=== PATIENT | male | born 1970 | race Caucasian/White ===

== ENCOUNTER 2016-09-21 12:03 | Observation (INO) | payer BC ==
[~2016-09-21] VITALS: Ht 188 cm; Wt 141.8 kg
[~2016-09-21 12:03] MED LIST: PERCOCET 10/3251 TA1 PO; PRINIVIL20 MG PO; ROBAXIN-750750 MG PO
[2016-09-21 12:30] LABS: APPEARANCE CLEAR (CLEAR); BILIRUBIN NEGATIVE (NEGATIVE); COLOR YELLOW (YELLOW); GLUCOSE NEGATIVE (NEGATIVE); KETONE NEGATIVE (NEGATIVE); LEUKOCYTE ESTERASE NEGATIVE (NEGATIVE); NITRITE NEGATIVE (NEGATIVE); PROTEIN NEGATIVE (NEGATIVE); UROBILINOGEN NORMAL (NORMAL)
[2016-09-21 12:38] LABS: BASOPHILS 0.1 % (0-2); EOSINOPHILS 0.8 % (0-7); HEMATOCRIT 45.7 % (42.0-54.0); IMMATURE GRANULOCYTES 0.3 % (0-5); LYMPHOCYTES 10.9 % (15-50); MCH 30.6 pg (26.0-34.0); MCV 87.4 fL (80.0-100.0); MEAN PLATELET VOLUME 10.9 fL (7.4-10.4); MONOCYTES 6.7 % (2-11); NEUTROPHILS 81.2 % (40-80); PLATELET COUNT 242 10x3/uL (130-400); RBC 5.23 10x6/uL (4.20-6.10); RDW 12.6 % (11.5-14.5); WBC 15.4 10x3/uL (4.8-10.8)
[2016-09-21 13:03] LABS: ALBUMIN 3.9 g/dL (3.4-5.0); ALKALINE PHOSPHATASE 81 U/L (46-116); ALT (SGPT) 56 U/L (10-68); AMYLASE - SERUM 27 U/L (25-115); BILIRUBIN - TOTAL 0.98 mg/dL (0.2-1.3); CALC OSMOLALITY 273 mosm/kg (275-300); CALCIUM 9.1 mg/dL (8.5-10.1); CARBON DIOXIDE 25.8 mmol/L (21.0-32.0); CHLORIDE - SERUM 103 mmol/L (98-107); CREATININE - SERUM 0.9 mg/dL (0.6-1.3); GLUCOSE 111 mg/dL (74-106); LIPASE 82 U/L (73-393); PROTEIN - SERUM 7.9 g/dL (6.4-8.2); SODIUM 137 mmol/L (136-145); UREA NITROGEN 9 mg/dL (7-18); eGFR NON AFRICAN AMERICAN > 90 mL/min (90-120)
--- NOTE | 2016-09-21 16:52 | NUR ---
RECEIVED TO ROOM 2222 FROM ER VIA . ORIENTED TO ROOM AND CALL LIGHT SYSTEM. FAMILY IN ROOM. CALL LIGHT IN REACH. WILL CONTINUE WITH PLAN OF CARE.
--- NOTE | 2016-09-21 17:00 | NUR ---
NS INITIATED PER ORDER. FLAGYL 500 MG IVPB, AND MORPHINE 4 MG SIVP PER C/O PAIN OF 8. FAMILY IN ROOM. CALL LIGHT IN REACH.
--- NOTE | 2016-09-21 17:50 | NUR ---
LISINOPRIL PO. STATES PAIN HAS DECREASED TO A 4.
[2016-09-21 18:24] VITALS: BP 162/108; Ht 188 cm; Wt 141.8 kg
--- NOTE | 2016-09-21 18:32 | NUR ---
ASSESSMENT PER ADMIT PACK.PT DENIES NEEDS.DECLINES GOWN,STATES FAMILY TO BRING SHORTS.CALL LIGHT IN REACH.
[2016-09-21 19:00] VITALS: BP 161/92
[2016-09-22] VITALS: BP 147/82
[2016-09-22 04:39] LABS: BASOPHILS 0.1 % (0-2); EOSINOPHILS 1.2 % (0-7); HEMATOCRIT 43.5 % (42.0-54.0); IMMATURE GRANULOCYTES 0.2 % (0-5); MCH 30.4 pg (26.0-34.0); MCHC 34.5 g/dL (31.0-37.0); MCV 88.2 fL (80.0-100.0); MEAN PLATELET VOLUME 10.5 fL (7.4-10.4); MONOCYTES 10.7 % (2-11); NEUTROPHILS 77.8 % (40-80); PLATELET COUNT 221 10x3/uL (130-400); RBC 4.93 10x6/uL (4.20-6.10); RDW 12.9 % (11.5-14.5)
[2016-09-22 04:48] LABS: CALC OSMOLALITY 272 mosm/kg (275-300); CALCIUM 8.7 mg/dL (8.5-10.1); CARBON DIOXIDE 26.3 mmol/L (21.0-32.0); CHLORIDE - SERUM 101 mmol/L (98-107); CREATININE - SERUM 0.8 mg/dL (0.6-1.3); GLUCOSE 123 mg/dL (74-106); POTASSIUM - SERUM 4.2 mmol/L (3.5-5.1); SODIUM 137 mmol/L (136-145); UREA NITROGEN 7 mg/dL (7-18); eGFR NON AFRICAN AMERICAN > 90 mL/min (90-120)
[2016-09-22] MEDS ORDERED: FLAGYL500 MG PO (06:55)
[2016-09-22] MEDS ORDERED: CIPRO500 MG PO (06:55)
--- NOTE | 2016-09-22 06:58 | HP ---
PATIENT: ALICIA RIGGINS MEDICAL RECORD: [id number] ACCOUNT: [id number] LOCATION:D.MS Martin2222 : 70 ADMISSION DATE: 09/21/16 HISTORY AND PHYSICAL EXAMINATION DATE OF ADMISSION: 09/21/2016 CHIEF COMPLAINT: Abdominal pain. HISTORY OF PRESENT ILLNESS: The patient is a 46-year-old gentleman who states on Wednesday, he had developed pain in the left lower quadrant. He continues to have the pain. He presented to the Emergency Room where he was found to have diverticulitis, it was felt that the patient should be admitted. PAST MEDICAL HISTORY: Significant that he has had history of having hypertension, hyperlipidemia. He has had partial colon resection secondary to diverticulitis. He has had low back pain. FAMILY HISTORY: Father has Alzheimer's and hypertension. Mother of malignant tumor of the colon at age 60. SOCIAL HISTORY: The patient was born and raised in [facility]. He has education through the 12th grade. 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 Never a smoker, but does dip skoal on a daily basis. He denies any ethanol use. MEDICATIONS: Include lisinopril 20 mg 1 p.o. daily. ALLERGIES: He has no known drug allergies. REVIEW OF SYSTEMS: GENERAL: He denies any headaches, seizure, or syncope. Denies change in visual or auditory acuity. PULMONARY: He denies any shortness of breath, cough, congestion, history of TB, asthma or bronchitis. CARDIOVASCULAR: No chest pain, palpitation, PND, or orthopnea. GASTROINTESTINAL: No chronic nausea, vomiting, melena, or hematochezia. GENITOURINARY: No urgency, frequency, or dysuria. PHYSICAL EXAMINATION: VITAL SIGNS: His temperature is 99.4. His vital signs are stable. HEENT: Unremarkable. NECK: Supple. There is no adenopathy. HEART: Has a regular rate and rhythm without any murmurs, gallops, or rubs. LUNGS: Clear. ABDOMEN: Soft. He does have some left lower quadrant tenderness. The patient did have a CT scan of the abdomen. The CT scan of the abdomen revealed diverticulitis in the descending colon, also postoperative changes were noted. LABORATORY DATA: The patient had a white count elevated at 15.4. There was a left shift. Sodium 137, potassium 4, chloride is 103, CO2 is 25.8, BUN is 9, creatinine is 0.9 and glucose of 111. ASSESSMENT: 1. Leukocytosis. HISTORY AND PHYSICAL [id number] RIGGINSALICIA Gallo 2. Diverticulitis. PLAN: The patient is admitted, placed on Levaquin 500 mg IV q.24 hours and Flagyl 500 mg IV q.8 hours. Also, the patient was given morphine. Repeat CBC as well as BMP in the a.m. TRANSINT:[id number] Voice Confirmation ID: [id number] DOCUMENT ID: [id number] TEMO GRAY MD at 0658 CC: [id number] DICTATION DATE: 09/21/16 172 COLLEGE SPECIALIST: 09/21/16 [address] [place] [address]
--- NOTE | 2016-09-22 07:35 | NUR ---
PT AOX4 RESP EVEN AND NONLABORED PT DENIES NEEDS AT THIS TIME IV TO LEFT FOREARM PATENT AND INTACT SRX2 BED IN LOWEST POSITION CALL LIGHT WITHIN REACH WILL CONTINUE TO MONITOR
[2016-09-22 08:49] VITALS: BP 124/63
--- NOTE | 2016-09-22 08:52 | NUR ---
Patient Name: ALICIA RIGGINS Admission Status: ER Accout number: [id number] Admission Date: 09-21-2016 : 1970 Admission Diagnosis: Attending: DAX Current LOS: 1 Anticipated DC Date: 09-22-2016 Planned Disposition: Home Primary Insurance: [employer] [facility] Discharge Planning Comments: CM MET WITH PATIENT REGARDING D/C NEEDS AND PLANS. PATIENT IS DISCHARGING HOME TODAY AND (RENETTA) WILL DRIVE HIM. PATIENT STATED THERE ARE NO STEPS OR STAIRS AT HIS HOME. PATIENT IS INDEPENDENT WITH HIS CARE AND HAS NO DME AT HOME. PATIENTS PCP IS DR. GRAY AND PHARMACY IS [facility]. PATIENT STATED HE DID NOT NEED HOME HEALTH AND HAD NO OTHER NEEDS FOR DISCHARGE TODAY. CM WILL CONTINUE TO FOLLOW PATIENT WITH D/C NEEDS AND PLANS. PCP DR. GRAY [facility]- [phone] RENETTA (SPOUSE) [phone] Sugar Cane Planter: Tania Vieyra Is the patient Alert and Oriented? Yes 0 * How many steps to enter\exit or inside your home? 0 0 * PCP DR. GRAY 0 * Pharmacy [facility] 0 * Preadmission Environment Home with Family 0 * ADLs Independent 0 * Equipment None 0 * List name and contact numbers for known caregivers / representatives who currently or will assist patient after discharge: RENETTA () [phone] * Community resources currently utilized None 0 * Additional services required to return to the preadmission environment? Yes 0 * Can the patient safely return to the preadmission environment? Yes 0 * Has this patient been hospitalized within the prior 30 days at any hospital? No 0 Grand Total: 0
--- NOTE | 2016-09-22 12:00 | NUR ---
PT IV DICONTINUED WITH CATHETER INTACT AT THIS TIME PT GIVEN DISCHARGE INSTRUCTIONS AND VERBALIZES UNDERSTANDING PT LEFT VIA AMBULATION AT THIS TIME VIA PRIVATE VEHICLE
== END 2016-09-22 12:01 | disposition home or self-care (01) ==
LOC: D.ER 12:03 → D.MS 16:01 → OBSVTIME 16:01 → D.MS 16:01
PROVIDERS: Emergency Medicine; ADMIT Family Medicine
DX: K57.32 Diverticulitis of large intestine without perforation or abscess without bleeding (principal); I10 Essential (primary) hypertension; E78.5 Hyperlipidemia, unspecified; F17.220 Nicotine dependence, chewing tobacco, uncomplicated

== ENCOUNTER → 2017-02-10 12:06 | Outpatient (CLI) | payer BC ==
[2016-09-21 18:24] VITALS: BMI 40.1
[~2017-02-10 12:06] MED LIST changes: +CIPRO500 MG PO; +DILAUDID2 MG PO; +FLAGYL500 MG PO; +HYDROCODONE-APA1 TAB PO; +PRAVACHOL40 MG PO; +ZESTRIL20 MG PO
== END | disposition home or self-care (01) ==
LOC: D.MRI 12:00
DX: M25.561 Pain in right knee (principal)

== ENCOUNTER 2017-02-22 06:16 | Day surgery (SDC) | payer BC ==
[2017-02-19 12:09] LABS: HEMATOCRIT 45.8 % (42.0-54.0); HEMOGLOBIN 16.3 g/dL (13.5-17.5); MCH 30.6 pg (26.0-34.0); MCHC 35.6 g/dL (31.0-37.0); MCV 86.1 fL (80.0-100.0); MEAN PLATELET VOLUME 9.9 fL (7.4-10.4); RBC 5.32 10x6/uL (4.20-6.10); RDW 12.7 % (11.5-14.5); WBC 9.6 10x3/uL (4.8-10.8)
[~2017-02-22] VITALS: Ht 188 cm; Wt 131.7 kg
[~2017-02-22 06:16] MED LIST changes: -DILAUDID2 MG PO
[2017-02-22 13:45] VITALS: BP 144/86; Ht 188 cm; Wt 131.7 kg
[2017-02-22] MEDS ORDERED: DILAUDID2 MG PO (15:56)
--- NOTE | 2017-02-22 17:39 | NUR ---
NORCO GIVEN PER EMAR FOR PAIN LEVEL OF 8 IN RIGHT KNEE. SPOUSE AT BEDSIDE, PATIENT SERVED FULL LIQUID DIET
--- NOTE | 2017-02-22 17:55 | NUR ---
PATIENT STATES PAIN HAS IMPROVED TO A 7. PATIENT REQUESTS DISCHARGE HOME, PATIENT AMBULATES TO BATHROOM USING CRUTCHES WITH SPOUSE ASSISTING. IMMOBILIZER IN PLACE TO RIGHT KNEE. IV DC'D WITH TIP INTACT
--- NOTE | 2017-02-22 18:05 | NUR ---
DISCHARGE INSTRUCTIONS REVIEWED WITH SPOUSE AND PATIENT, PATIENT DISCHARGED HOME VIA WHEELCHAIR TO PRIVATE VEHICLE WITH SPOUSE
--- NOTE | 2017-02-22 18:05 | NUR ---
DISCHARGE INSTRUCTIONS REVIEWED WITH PATIENT AND SPOUSE. PATIENT DISCHARGED HOME VIA WHEELCHAIR TO PRIVATE VEHICLE WITH SPOUSE
--- NOTE | 2017-03-15 12:37 | OP ---
PATIENT NAME: ALICIA RIGGINS MEDICAL RECORD: [id number] :70 LOCATION:DMagdiOPS ADMISSION DATE: SURGEON: TEMO PEOPLES MD DATE OF OPERATION: 02/22/2017 PREOPERATIVE DIAGNOSIS: Anterior cruciate ligament tear with medial and lateral meniscal tears. POSTOPERATIVE DIAGNOSES: Anterior cruciate ligament tear with medial and lateral meniscal tears. PROCEDURE: 1. Arthroscopic allograft anterior cruciate ligament reconstruction arthroscopically done. 2. Arthroscopic partial medial meniscectomy. 3. Arthroscopic partial lateral meniscectomy. SURGEON: Temo Peoples MD ANESTHESIA: General. INTRAOPERATIVE COMPLICATIONS: Essentially none. SUMMARY OF PATHOLOGIC FINDINGS: Complete full-thickness ACL tear was found along with medial and lateral meniscal tears. Photographed intraoperatively was the medial meniscus tear along with the new graft that was put in place. OPERATIVE SUMMARY IN DETAIL: After obtaining the appropriate preoperative orthopedic surgery consent as well as anesthetic consultation, evaluation and clearance, the patient was brought to the operating room and placed on operating table in supine position. After general laryngeal mask was administered, tourniquet was placed about the proximal aspect of the patient's right lower extremity. Right lower extremity was then prepped and draped in routine sterile fashion. Leg was elevated and exsanguinated and tourniquet was inflated to 350 mmHg. Inferolateral portal was established followed by superomedial portal and inferomedial portal. Diagnostic arthroscopy did reveal the above findings. Attention was first turned to clean up of the stump and notchplasty was performed as this big man had a tight notch. This was performed and then attention was turned to the medial meniscus where simple arthroscopic resector was utilized to clean up the peripheral rim tearing. The knee in a pwrjsm-ns-sagc position a little larger tear was seen in the lateral meniscus. This too was cleaned up and checked for stability. Having completed this and the autograft having already been made on the back table, the tibial tunnel was created under the Arthrex tibial tunnel guide and likewise was the femoral canal. The low profile reamer was used to make the femoral tunnel and the spade tipped guidewire had already made the lateral canal for the Arthrex TightRope fixation. The graft and the TightRope were then introduced into the canal under arthroscopic visualization. Button was flipped on the lateral cortex, well seated and then held tightly while it was taken through range of motion several times. Distal fixation was carried out with a bicortical ACL post. This was then put in and flushed. Having completed this, wound was copiously irrigated and closed in usual fashion. Sterile dressings were applied. Tourniquet was deflated. The patient was awakened and taken to recovery room in stable condition. All final needle and sponge counts were correct. OPERATIVE REPORT [id number] ALICIA RIGGINS TRANSINT:[id number] Voice Confirmation ID: [id number] DOCUMENT ID: [id number] SHELTON LOUISE, TEMO LARSEN at 1237 CC: [id number] DICTATION DATE: 03/15/17 1042 TYING MACHINE OPERATOR LUMBER: 03/15/17 1201 [facility] 02/22/17 [place] [id number] [place] [address]
== END 2017-02-22 18:05 | disposition home or self-care (01) ==
LOC: D.OPS 06:16 → D.PAN 12:45 → D.OPS 13:00
PROVIDERS: Anesthesiology
DX: S83.511A Sprain of anterior cruciate ligament of right knee, initial encounter (principal); S86.811A Strain of other muscle(s) and tendon(s) at lower leg level, right leg, initial encounter; S83.281A Other tear of lateral meniscus, current injury, right knee, initial encounter; S83.241A Other tear of medial meniscus, current injury, right knee, initial encounter; X58.XXXA Exposure to other specified factors, initial encounter

== ENCOUNTER 2017-05-20 10:01 | Day surgery (SDC) | payer BC ==
[~2017-05-20] VITALS: Ht 188 cm; Wt 134.1 kg
--- NOTE | ~2017-05-20 | OP ---
PATIENT NAME: ALICIA RODRIGUEZ MEDICAL RECORD: [id number] :70 LOCATION:MAT[facility]W ADMISSION DATE: SURGEON: TANIA HO MD DATE OF OPERATION: 05/20/2017 PROCEDURE: Colonoscopy with ileoscopy and polypectomy. INDICATIONS: Mr. Rodriguez is a delightful 46-year-old gentleman with history of diverticulitis and a family history of colon cancer (his mother was diagnosed with colon cancer at age 50). He had a left sigmoidectomy in 2013 secondary to recurrent diverticulitis. He presents for outpatient screening colonoscopy. PREMEDICATIONS: Total IV anesthesia (propofol 450 mg). INSTRUMENT: Olympus video colonoscope pediatric. PROCEDURE AND FINDINGS: After receiving informed consent, Mr. Rodriguez was placed in left lateral decubitus position and sedated as per anesthesia. After achieving an adequate level of sedation, digital rectal exam was performed that showed no external hemorrhoidal tags, fissures or fistulas, normal sphincter tone, no palpable rectal masses. Colonoscope was introduced per rectally and advanced to the cecum without difficulty. The cecum, IC valve, and appendiceal orifice were identified. There were few scattered diverticula within the cecum. In the proximal ascending colon was a 0.75 cm sessile polyp removed with hot biopsy forcep technique. In the mid ascending colon was a 0.75 cm sessile polyp removed with hot biopsy forcep technique. In the descending colon were 2 polyps adjacent to each other measuring 0.3 to 0.5 cm in size, sessile, removed with hot biopsy forcep technique. Diverticula were seen scattered throughout the ascending, transverse, descending colon. Colocolonic anastomosis was identified at approximately 30 cm. Retroflexion in rectum showed no internal hemorrhoids. A fair prep was present. Mr. Rodriguez tolerated the procedure well, no immediate complications. Withdrawal time was 14 minutes. ASSESSMENT: 1. Two descending colon polyp status post polypectomy. 2. Paroxysmal ascending colon polyp status post polypectomy. 3. Mid-ascending colon polyp status post polypectomy. 4. Mild pandiverticulosis coli. 5. History of sigmoidectomy secondary to recurrent diverticulitis in 2013. 6. Family history of colon cancer. RECOMMENDATIONS: 1. Follow up histopathology. 2. Avoid aspirin, nonsteroidal anti-inflammatory drugs and HARMON-2 inhibitors for 14 days post polypectomy. 3. High fiber diet. 4. Daily Metamucil or Benefiber. 5. Surveillance colonoscopy in 3 years, pending nature of polyp histopathology. TRANSINT:[id number] Voice Confirmation ID: [id number] DOCUMENT ID: [id number] OPERATIVE REPORT [id number] ALICIA RODRIGUEZ TERRI MD CC: TEMO GRAY [id number] DICTATION DATE: 05/20/17 1308 MULTI CARE TECHNICIAN: 05/20/17 1418 [address] [place] [id number] [place] [id number]
[~2017-05-20 10:01] MED LIST changes: +DILAUDID2 MG PO
[2017-05-20 10:56] VITALS: BP 124/77; Ht 188 cm; Wt 134.1 kg
[2017-05-20 11:28] LABS: HEMATOCRIT 42.5 % (42.0-54.0); HEMOGLOBIN 14.7 g/dL (13.5-17.5); MCH 30.5 pg (26.0-34.0); MCHC 34.6 g/dL (31.0-37.0); MCV 88.2 fL (80.0-100.0); MEAN PLATELET VOLUME 10.4 fL (7.4-10.4); RBC 4.82 10x6/uL (4.20-6.10); RDW 12.9 % (11.5-14.5); WBC 7.7 10x3/uL (4.8-10.8)
== END 2017-05-20 13:50 | disposition home or self-care (01) ==
LOC: D.OPS 10:01
PROVIDERS: Anesthesiology
DX: Z12.11 Encounter for screening for malignant neoplasm of colon (principal); K63.5 Polyp of colon; K57.30 Diverticulosis of large intestine without perforation or abscess without bleeding; Z90.49 Acquired absence of other specified parts of digestive tract; Z87.19 Personal history of other diseases of the digestive system; Z80.0 Family history of malignant neoplasm of digestive organs; Z01.812 Encounter for preprocedural laboratory examination

== ENCOUNTER 2018-02-26 07:25 | Emergency (ER) | payer BC ==
[~2018-02-26] VITALS: Ht 188 cm; Wt 134.1 kg
[2018-02-26 07:29] VITALS: Ht 188 cm; Wt 134.1 kg
[2018-02-26 07:49] LABS: BASOPHILS 0.2 % (0-2); EOSINOPHILS 2.8 % (0-7); HEMATOCRIT 43.9 % (42.0-54.0); HEMOGLOBIN 15.3 g/dL (13.5-17.5); IMMATURE GRANULOCYTES 0.2 % (0-5); LYMPHOCYTES 18.7 % (15-50); MCHC 34.9 g/dL (31.0-37.0); MCV 88.9 fL (80.0-100.0); MEAN PLATELET VOLUME 10.2 fL (7.4-10.4); MONOCYTES 9.6 % (2-11); NEUTROPHILS 68.5 % (40-80); PLATELET COUNT 234 10x3/uL (130-400); RBC 4.94 10x6/uL (4.20-6.10); WBC 10.2 10x3/uL (4.8-10.8)
[2018-02-26 08:03] LABS: APPEARANCE CLEAR (CLEAR); BILIRUBIN NEGATIVE (NEGATIVE); COLOR YELLOW (YELLOW); GLUCOSE NEGATIVE (NEGATIVE); KETONE NEGATIVE (NEGATIVE); NITRITE NEGATIVE (NEGATIVE); PROTEIN NEGATIVE (NEGATIVE); UROBILINOGEN NORMAL (NORMAL)
[2018-02-26 08:03] LABS: ALBUMIN 3.6 g/dL (3.4-5.0); ALKALINE PHOSPHATASE 101 U/L (46-116); ALT (SGPT) 46 U/L (10-68); AMYLASE - SERUM 36 U/L (25-115); CALC OSMOLALITY 277 mosm/kg (275-300); CALCIUM 8.7 mg/dL (8.5-10.1); CARBON DIOXIDE 28.8 mmol/L (21.0-32.0); CHLORIDE - SERUM 105 mmol/L (98-107); CREATININE - SERUM 0.9 mg/dL (0.6-1.3); GLUCOSE 107 mg/dL (74-106); LIPASE 83 U/L (73-393); POTASSIUM - SERUM 4.1 mmol/L (3.5-5.1); PROTEIN - SERUM 7.4 g/dL (6.4-8.2); SODIUM 140 mmol/L (136-145); UREA NITROGEN 11 mg/dL (7-18); eGFR NON AFRICAN AMERICAN > 90 mL/min (90-120)
[2018-02-26] MEDS ORDERED: NORCO 10-325 TA1 TAB PO (09:49)
[2018-02-26] MEDS ORDERED: FLAGYL500 MG PO (09:49)
[2018-02-26 10:05] VITALS: BP 136/88
== END 2018-02-26 10:06 | disposition home or self-care (01) ==
LOC: D.ER 07:25
PROVIDERS: Emergency Medicine
DX: R10.32 Left lower quadrant pain (principal); R10.31 Right lower quadrant pain; K57.92 Diverticulitis of intestine, part unspecified, without perforation or abscess without bleeding; I10 Essential (primary) hypertension

== ENCOUNTER 2018-08-18 11:31 | Day surgery (SDC) | payer BC ==
[~2018-08-18] VITALS: Ht 188 cm; Wt 136.4 kg
[~2018-08-18 11:31] MED LIST changes: +NORCO 10-325 TA1 TAB PO
[2018-08-18 14:34] LABS: HEMATOCRIT 41.1 % (42.0-54.0); HEMOGLOBIN 14.4 g/dL (13.5-17.5); MCH 30.6 pg (26.0-34.0); MCV 87.3 fL (80.0-100.0); MEAN PLATELET VOLUME 10.1 fL (7.4-10.4); RBC 4.71 10x6/uL (4.20-6.10); RDW 12.4 % (11.5-14.5)
[2018-08-18 14:47] VITALS: BP 150/93; Ht 188 cm; Wt 136.4 kg
--- NOTE | 2018-08-18 16:20 | NUR ---
PIV DC'D WITH TIP INTACT. DISCHARGE INSTRUCTIONS REVIEWED WITH PATIENT AND SPOUSE, DISCHARGED HOME VIA WHEELCHAIR TO PRIVATE VEHICLE
--- NOTE | 2018-08-19 16:54 | OP ---
PATIENT NAME: ALICIA RODIRGUEZ MEDICAL RECORD: [id number] :70 LOCATION:[facility]W ADMISSION DATE: SURGEON: TANIA HO MD DATE OF OPERATION: 08/18/2018 PROCEDURE: 1. EGD with biopsy 2. Colonoscopy with biopsy and polypectomy. INDICATIONS: Mr. Rodriguez is a delightful 47-year-old gentleman with history of colon polyps, diverticulosis coli, status post sigmoidectomy for diverticulitis who has had symptoms of heartburn, nausea (and frequent upper abdominal pain and a change in bowel habits). He presents for outpatient EGD and colonoscopy. PREMEDICATIONS: Total IV anesthesia (propofol 700 mg). INSTRUMENT: Olympus video gastroscope and Olympus video colonoscope, pediatric adjustable. PROCEDURE AND FINDINGS: After receiving informed consent, Mr. Rodriguez's posterior pharynx was anesthetized with Cetacaine spray, placed in left lateral decubitus position, sedated as per anesthesia. After achieving of an adequate level of sedation, gastroscope was introduced per orally and advanced to the duodenum without difficulty. The esophageal mucosa was without erythema or ulcers. In the distal one-third of the esophagus was a partial nonobstructing esophageal ring (semi-circumferential) small sliding type hiatal hernia is present. Gastric mucosa was notable for a patch of erythema in the body of the stomach and mild prepyloric erythema. Antral biopsies were obtained to rule out Helicobacter pylori. No lesions were seen along the incisura, cardia or fundus of the stomach. Pylorus was patent and competent. Duodenal mucosa was notable for mild diffuse duodenal bulbar mucosal erythema, the first and second portion of the duodenal mucosa appeared normal. Biopsies were taken from the second portion of the duodenum. Gastroscope was then withdrawn. Mr. Rodriguez was then prepared for colonoscopy. Digital rectal examination performed that showed no external hemorrhoidal tags, fissures or fistulas, normal sphincter tone, no palpable rectal masses. The colonoscope was introduced per rectally and advanced to the cecum without difficulty. Cecum, IC valve, and appendiceal orifice were identified. There were a few diverticula were present in the cecum. The terminal ileum was intubated and the distal small bowel mucosa was without erythema or ulcers. As the colonoscope was withdrawn, careful inspection was made of the ceja of the colon. Overall mucosa had normal vascular and fold pattern. There was minimal patchy erythema in the proximal ascending colon and biopsies were obtained to rule out microscopic colitis. A small 0.25-0.3 cm sessile polyp was located in the proximal ascending colon and was removed with hot biopsy forcep technique. A few diverticula were seen scattered in the left colon. The colocolonic anastomosis was identified at approximately 25-30 cm and the anastomosis was "wide open." Retroflexion in rectum showed mild internal hemorrhoids. A good prep was present. Liquid stool was collected from the colon and sent for study. Withdrawal time was 9 minutes. Mr. Rodriguez tolerated the procedure well. No immediate complications. ASSESSMENT: 1. Partial nonobstructive Schatzki's ring in the distal third of the esophagus OPERATIVE REPORT [id number] ALICIA RODRIGUEZ (asymptomatic). 2. Small sliding type hiatal hernia. 3. Mild patchy gastritis, rule out Helicobacter pylori. 4. Bulbar duodenitis. 5. Normal appearing terminal ileum, normal mucosa in the terminal ileum. 6. Diverticula in the cecum and a few in the left colon. 7. Small proximal ascending colon polyp status post polypectomy. 8. Minimal nonspecific erythema in the proximal ascending colon, status post biopsy, rule out microscopic colitis. 9. Mild internal hemorrhoids. 10. Family history of colon cancer. RECOMMENDATIONS: 1. Follow up histopathology. 2. Avoid aspirin, nonsteroidal anti-inflammatory drugs and HARMON-2 inhibitors 14 days post polypectomy. 3. High fiber diet. 4. Surveillance colonoscopy in 3 years. 5. Follow up XTAG study. TRANSINT:[id number] Voice Confirmation ID: [id number] DOCUMENT ID: [id number] TANIA HO MD at 1654 CC: TEMO GRAY [id number] DICTATION DATE: 08/18/18 1543 SR ACCOUNT EXECUTIVE: 08/18/18 1627 [facility] 08/18/18 [place] [id number] [place] [id number]
== END 2018-08-18 16:20 | disposition home or self-care (01) ==
LOC: D.OPS 11:31
PROVIDERS: Anesthesiology; ATTEND Internal Medicine Gastroenterology
DX: K22.2 Esophageal obstruction (principal); K44.9 Diaphragmatic hernia without obstruction or gangrene; K29.80 Duodenitis without bleeding; K57.30 Diverticulosis of large intestine without perforation or abscess without bleeding; K64.8 Other hemorrhoids; K29.50 Unspecified chronic gastritis without bleeding; D12.2 Benign neoplasm of ascending colon; Z80.0 Family history of malignant neoplasm of digestive organs; Z01.812 Encounter for preprocedural laboratory examination

== ENCOUNTER → 2018-11-10 06:56 | Outpatient (CLI) | payer BC ==
[2018-08-18 14:47] VITALS: BMI 38.6
[~2018-11-10 06:56] MED LIST changes: +HYDROCODON-ACE1 EA10 PO; +PERCOCET 10-321 EAC1 PO
== END | disposition home or self-care (01) ==
LOC: D.MRI 06:56
PROVIDERS: ATTEND Clinical Nurse Specialist Family Health
DX: M25.561 Pain in right knee (principal)

== ENCOUNTER 2018-11-17 07:10 | Day surgery (SDC) | payer BC ==
[2018-11-15 14:25] LABS: HEMATOCRIT 40.7 % (42.0-54.0); HEMOGLOBIN 14.5 g/dL (13.5-17.5); MCH 30.1 pg (26.0-34.0); MCHC 35.6 g/dL (31.0-37.0); MCV 84.4 fL (80.0-100.0); MEAN PLATELET VOLUME 10.2 fL (7.4-10.4); RBC 4.82 10x6/uL (4.20-6.10); RDW 12.9 % (11.5-14.5); WBC 12.7 10x3/uL (4.8-10.8)
[2018-11-15 14:34] LABS: CALC OSMOLALITY 274 mosm/kg (275-300); CALCIUM 8.5 mg/dL (8.5-10.1); CARBON DIOXIDE 27.1 mmol/L (21.0-32.0); CHLORIDE - SERUM 102 mmol/L (98-107); CREATININE - SERUM 0.7 mg/dL (0.6-1.3); GLUCOSE 89 mg/dL (74-106); POTASSIUM - SERUM 3.7 mmol/L (3.5-5.1); SODIUM 138 mmol/L (136-145); UREA NITROGEN 12 mg/dL (7-18); eGFR NON AFRICAN AMERICAN > 90 mL/min (90-120)
[~2018-11-17] VITALS: Ht 188 cm; Wt 136.1 kg
[~2018-11-17 07:10] MED LIST changes: -HYDROCODON-ACE1 EA10 PO; -PERCOCET 10-321 EAC1 PO
[2018-11-17] MEDS ORDERED: HYDROCODON-ACE1 EA10 PO (07:40)
[2018-11-17 07:45] VITALS: BP 140/90; Ht 188 cm; Wt 136.1 kg
[2018-11-17] MEDS ORDERED: PERCOCET 10-321 EAC1 PO (12:54)
--- NOTE | 2018-11-22 14:40 | OP ---
PATIENT NAME: ALICIA RIGGINS MEDICAL RECORD: [id number] :70 LOCATION:D.OPS ADMISSION DATE: SURGEON: TEMO PEOPLES MD DATE OF OPERATION: 11/17/2018 PREOPERATIVE DIAGNOSES: 1. Osteochondral defect of the medial femoral condyle of the left knee. 2. Lateral meniscus tear. POSTOPERATIVE DIAGNOSES: 1. Osteochondral defect of the medial femoral condyle of the left knee. 2. Lateral meniscus tear. PROCEDURES: 1. Left knee arthroscopy with debridement and chondroplasty of the medial femoral condylar articular lesion. 2. Arthroscopic partial lateral meniscectomy. SURGEON: Temo Peoples MD PUBLIC HEALTH TEACHER: Lucho Oquendo INTRAOPERATIVE COMPLICATIONS: Essentially none. SUMMARY OF PATHOLOGIC FINDINGS: The patient did have a large articular defect that was consistent with preoperative MRI. The patient was also found to have a small ball knot stack free floating of what appeared to be #2 Ethibond from previous surgery. Lastly, the patient had a complex tear of the residual portion of the lateral meniscus. Please note that Cartiform and BioCartilage were used along with the patient's PRP. OPERATIVE SUMMARY IN DETAIL: After obtaining the appropriate preoperative orthopedic surgery consent as well as anesthetic consultation, evaluation and clearance, the patient was brought to the operating room and placed on the operating table in supine position. After adequate general laryngeal mask airway was administered, a tourniquet was placed about the proximal aspect of the patient's left lower extremity. Please note, at this time in tandem, blood was drawn to harvest the patient's platelet rich plasma. After the patient's lower extremity was prepped and draped in routine sterile fashion, the appropriate timeout was taken to include the appropriate operative site as well as the patient identifiers, medications, as well as allergies. Leg was elevated and exsanguinated. Tourniquet was inflated to 350 mmHg. Routine inferolateral portal was established followed by superomedial portal as well as inferomedial portal. Diagnostic arthroscopy and diagnostic pictures were used to show the patient's pathology. Attention was first turned to taking down including the area of chondral defect to make it a stable base. Having completed this, the small knot stack was taken out using arthroscopic graspers. Lastly, the leg was placed in a kthftj-ko-osyx and while in the [id number]-zt-mmre, the lateral meniscus was debrided back to stable lateral meniscal elements using both meniscotomes as well as an arthroscopic resector. It is of note that the patient's ACL, PCL was in good overall condition and the residual of the knee looked much nicer than radiographs would have predicted. 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 At this point, the arthroscopy was terminated and the arthrotomy was performed directly over the medial femoral condyle for direct access and the large articular defect OPERATIVE REPORT [id number] VAISHNAVIALICIA Holder was seen. Further curettage was utilized to stabilize the edges and then two 2.9 PushLocks from Arthrex having been prepared with 2-0 Vicryl were placed at the superior and inferior pole of the defect. After this, the Arthrex chondral pick was utilized to create an abrasion chondroplasty past the tide rigo to assist with healing. The Cartiform that had been soaking in the patient's PRP was then sutured directly into the chondral defect with exact measurements. Having completed this, the PRP was then used and mixed with BioCartilage and then used to fill in all of the small areas about this as well as a small area of grade II chondromalacia distal to the Cartiform. Having completed this and making this very smooth, it was held into place with BioGlue. After the BioGlue was allowed to harden, the knee was held with valgus stress and then put into an extended position. At this point, the arthrotomy was closed deeply with #1 Vicryl followed by 2-0 Vicryl and skin sanjeev. Sterile dressings were applied. Tourniquet was deflated. The patient was awakened and taken to the recovery room in stable condition. All final needle and sponge counts were correct. TRANSINT:[id number] Voice Confirmation ID: [id number] DOCUMENT ID: [id number] SHELTON LOUISE, TEMO LARSEN at 1440 CC: [id number] DICTATION DATE: 11/22/18 0844 EVALUATION ASSISTANT: 11/22/18 1134 [facility] 11/17/18 [facility] [address] [place] [address]
== END 2018-11-17 14:50 | disposition home or self-care (01) ==
LOC: D.OPS 07:10 → D.PAN 15:00
PROVIDERS: Anesthesiology; ATTEND Orthopaedic Surgery
DX: M21.862 Other specified acquired deformities of left lower leg (principal); S83.282A Other tear of lateral meniscus, current injury, left knee, initial encounter; Z01.812 Encounter for preprocedural laboratory examination

== ENCOUNTER → 2019-01-04 16:40 | Outpatient (CLI) | payer BC ==
[2018-11-17 07:45] VITALS: BMI 38.6
[~2019-01-04 16:40] MED LIST changes: +HYDROCODON-ACE1 EA10 PO; +PERCOCET 10-321 EAC1 PO
[2019-01-04 17:36] LABS: PROTEIN - BODY FLUID 5.3 G/DL
[2019-01-04 18:05] LABS: MACROPHAGES BF 4 %; NEUT - BF 85 %
== END | disposition home or self-care (01) ==
LOC: D.LABREF 16:40
PROVIDERS: ATTEND Orthopaedic Surgery
DX: M25.462 Effusion, left knee (principal)

== ENCOUNTER → 2019-02-13 12:48 | Outpatient (CLI) | payer BC ==
[2018-11-17 07:45] VITALS: BMI 38.6
== END | disposition home or self-care (01) ==
LOC: D.MRI 12:48
PROVIDERS: ATTEND Clinical Nurse Specialist Family Health
DX: M25.562 Pain in left knee (principal)